=== PATIENT | male | born 1975 | race Caucasian/White ===

== ENCOUNTER 2024-08-24 12:45 | Emergency (ER) | payer OTHER, SELFPAY ==
[~2024-08-24] VITALS: Ht 175.3 cm; Wt 74.6 kg
[~2024-08-24 12:45] MED LIST: NOCURR; [UNRECOGNIZED DRUG - REMARK]
[2024-08-24 12:58] VITALS: TEMP 98.1
[2024-08-24 13:33] LABS: BASOPHILS % (AUTO) 0.5 % (0.0-2.0); EOSINOPHILS % (AUTO) 0.4 % (1.0-6.0); HEMATOCRIT 36.4 % (41-53); HEMOGLOBIN 12.4 g/dL (13.5-17.5); LYMPHOCYTES # (AUTO) 0.8 K/uL (1.0-4.8); LYMPHOCYTES % (AUTO) 14.8 % (22.0-44.0); MEAN CORPUSCULAR HEMOGLOBIN 29.9 pg (26.0-34.0); MEAN CORPUSCULAR HGB CONC 34.1 G/dL (31.0-37.0); MEAN CORPUSCULAR VOLUME 88 fL (80-100); MONOCYTES # (AUTO) 0.6 K/uL (0.1-1.0); NEUTROPHILS # (AUTO) 3.9 K/uL (1.8-7.7); NEUTROPHILS % (AUTO) 72.3 % (40.0-70.0); PLATELET COUNT (AUTO) 337 K/uL (150-450); RED BLOOD CELL COUNT(AUTO) 4.15 MIL/uL (4.50-5.90); RED CELL DISTRIBUTION WIDTH 14.1 % (11.5-14.5); WHITE BLOOD COUNT (AUTO) 5.3 K/uL (4.5-11.0)
[2024-08-24 13:39] LABS: ANION GAP 7 mmol/L (8-16); CALCIUM, TOTAL 8.9 mg/dL (8.8-10.5); CARBON DIOXIDE 29 mmol/L (22-29); CHLORIDE 99 mmol/L (98-107); GLOMERULAR FILTR. RATE CALC > 60 mL/min (>60); GLUCOSE,RANDOM 107 mg/dL (70-110); LIPASE 123 U/L (16-77); POTASSIUM 3.6 mmol/L (3.5-5.1); SODIUM SERUM 135 mmol/L (136-145); UREA NITROGEN, BLOOD 14 mg/dL (7-18)
[2024-08-24 13:43] LABS: PROTHROMBIN TIME 10.4 SEC (9.4-11.6)
[2024-08-24 13:45] LABS: ALBUMIN 2.6 g/dL (3.4-5.0); BILIRUBIN,DIRECT 0.1 mg/dL (0.00-0.20); BILIRUBIN,TOTAL 0.3 mg/dL (0.1-1.0); TOTAL PROTEIN, SERUM 6.3 g/dL (6.4-8.2)
[2024-08-24 14:22] LABS: ALCOHOL, BLOOD (SERUM) < 3 mg/dL (0-10)
[2024-08-24 14:27] LABS: TROPONIN I-HIGH SENSITIVITY 4 ng/L (<76)
[2024-08-24 14:44] LABS: B-TYPE NATRIURETIC PEPTIDE < 5 pg/mL (0-100)
[2024-08-24] MEDS: SODIUM CHLORIDE 0.9% 1,000 ML IV ONE (16:18)
[2024-08-24 18:00] VITALS: BP 134/77; PULSE 72; RESP 12; O2SAT 99
== END 2024-08-24 21:33 | disposition home or self-care (01) ==
LOC: EMS 12:45
DX: K52.9 Noninfective gastroenteritis and colitis, unspecified (principal); F17.210 Nicotine dependence, cigarettes, uncomplicated; R44.0 Auditory hallucinations; R55 Syncope and collapse
CPT/HCPCS: 99285; 74176; 96360; 71045; 96361; 80048; 80076; 82962; 83690; 83880; 84484; 85025; 85610; 85730; 86850; 86900; 86901; 36415; 93005; G0480; J7030

== ENCOUNTER 2025-03-12 20:30 | Emergency (ER) | payer OTHER ==
[~2025-03-12] VITALS: Ht 175.3 cm; Wt 72.3 kg
[2025-03-12 20:46] VITALS: BP 100/77; PULSE 89; RESP 18; O2SAT 98
[2025-03-12] MEDS: IBUPROFEN 600 MG TABLET PO ONE (22:08)
[2025-03-12] MEDS: ACETAMINOPHEN 500 MG TABLET PO ONE (22:08)
== END 2025-03-12 22:12 ==
LOC: EMS 20:30
DX: S22.31XA Fracture of one rib, right side, initial encounter for closed fracture (principal); S20.212A Contusion of left front wall of thorax, initial encounter; F17.210 Nicotine dependence, cigarettes, uncomplicated; Y04.0XXA Assault by unarmed brawl or fight, initial encounter; Y93.89 Activity, other specified; Y92.89 Other specified places as the place of occurrence of the external cause; Y99.8 Other external cause status
CPT/HCPCS: 71101; 99283